=== PATIENT | female | born 1975 | race Caucasian/White ===

== ENCOUNTER 2016-08-06 13:15 | Emergency (ER) | payer OTHER ==
[2016-08-06 13:51] VITALS: BP 118/72
--- NOTE | 2016-08-06 15:12 | UC ---
Respiratory Complaint HPI - HPI Summary HPI Summary: 41 female presents with complaints of a dry cough that began 3 days ago that has seemed to be improving today. States she also had a headache and body soreness from coughing so much. Denies fever, chest pain, SOB, difficulty breathing, vomiting and diarrhea. Admits to have some sore throat yesterday that has since resolved and current nasal congestion/drainage. She has been taking Nyquil and Advil and did have some relief. Did not have the flu shot this year. The symptoms seem to get worse when laying down at night. She denies any production with the cough and no hemoptysis. Denies any significant PMHx. - History of Current Complaint Chief Complaint: UCRespiratory Stated Complaint: COUGH Time Seen by Provider: 08/06/16 14:23 Hx Obtained From: Patient Hx Last Menstrual Period: n/a ?: No Onset/Duration: Sudden Onset Timing: Constant Severity Initially: Moderate Severity Currently: Mild Character: Cough: Nonproductive Aggravating Factors: Deep Breaths Alleviating Factors: OTC Meds Associated Signs And Symptoms: Positive: Chills, Pleuritic Chest Pain, URI, Nasal Congestion. Negative: Dyspnea, Fever, Wheezing, Hemoptysis, Dizziness, Calf Pain - Allergies/Home Medications Allergies/Adverse Reactions: Allergies Allergy/AdvReac Type Severity Reaction Status Date / Time environmental Allergy Itching Uncoded 08/06/16 13:51 Home Medications: Home Medications Amphetamine-Dextroamphetamine [Adderall 10 mg-] 1 tab PO DAILY 08/06/16 [ History Confirmed 08/06/16] Iud 1 unit IU DAILY 08/06/16 [History Confirmed 08/06/16] Prescribed Allergy Med 1 tab PO DAILY 08/06/16 [History Confirmed 08/06/16] PMH/Surg Hx/FS Hx/Imm Hx Endocrine History Of: Denies: Diabetes, Thyroid Disease Cardiovascular History Of: Denies: Cardiac Disorders, Hypertension Respiratory History Of: Reports: Asthma Denies: COPD GI/ History Of: Denies: Ulcer - Surgical History Surgical History: None - Family History Known Family History: Positive: None - Social History Alcohol Use: Weekly Alcohol Amount: weekends Substance Use Type: None Smoking Status (MU): Former Smoker Review of Systems Constitutional: Chills Skin: Negative Eyes: Negative ENT: Sore Throat, Nasal Discharge Respiratory: Cough Cardiovascular: Negative Gastrointestinal: Other - intermittent nausea Motor: Negative Neurovascular: Negative Musculoskeletal: Myalgia - from coughing Neurological: Headache Psychological: Negative All Other Systems Reviewed And Are Negative: Yes Physical Exam Triage Information Reviewed: Yes Appearance: Well-Appearing, No Pain Distress, Well-Nourished Vital Signs: Initial Vital Signs Temp 97.8 F 08/06/16 13:44 Pulse 99 08/06/16 13:44 Resp 18 08/06/16 13:44 BP 118/72 08/06/16 13:44 Pulse Ox 98 08/06/16 13:44 Vital Signs Reviewed: Yes Eye Exam: Normal Eyes: Positive: Conjunctiva Clear ENT: Positive: Normal ENT inspection, Hearing grossly normal, Pharyngeal erythema, Nasal congestion, Nasal drainage, TMs normal. Negative: Tonsillar swelling, Tonsillar exudate Dental: Negative: Percussion Tenderness @, Cervical Lymphadenopathy Neck: Positive: Supple, Nontender Respiratory: Positive: Chest non-tender, Lungs clear, Normal breath sounds, No respiratory distress, No accessory muscle use Cardiovascular: Positive: RRR, No Murmur, Pulses Normal, Brisk Capillary Refill Abdomen Description: Positive: Nontender, No Organomegaly, Soft Bowel Sounds: Positive: Present Musculoskeletal Exam: Normal Musculoskeletal: Positive: Strength Intact, ROM Intact, No Edema Neurological Exam: Normal Neurological: Positive: Alert Psychological Exam: Normal Skin Exam: Normal UC Diagnostic Evaluation - Laboratory O2 Sat by Pulse Oximetry: 98 Respiratory Course/Dx - Course Course Of Treatment: due to patient symptoms and history an x-ray would not be appropriate at this time. Normal vital signs. Appears to be suffering from URI. Will be treated symptomatically. patient is in agreement. is aware of worsening signs and symptoms to watch out for. last dose of advil was YOGA COORDINATOR and therefore not needed at this time. mucinex, flonase/saline nasal spray, tylenol/advil, zicam. given tessalon pearls to take at night to help with cough and to get rest. drink plenty of fluids and follow up. - Differential Dx/Diagnosis Differential Diagnosis/HQI/PQRI: Bronchitis, Sinusitis, Other Provider Diagnoses: URI Discharge - Discharge Plan Condition: Stable Disposition: HOME Prescriptions: Benzonatate CAP* [Tessalon 100 MG CAP*] 100 mg PO TID #20 cap Patient Education Materials: Upper Respiratory Infection (ED), Acute Bronchitis (ED) Referrals: MAHSA Bryant [Primary Care Provider] - Additional Instructions: Recommend taking OTC Mucinex and Zicam to help with your symptoms and to decrease congestion. Use your prescribed flonase and recommend also using saline nasal rinses to help with congestion and opening nasal passages. Tylenol/Advil for pain. Rest and drink plenty of fluids. Wash your hands frequently. If symptoms persist or worsen after the next 10-14 days, please seek medical attention.
== END 2016-08-06 15:21 | disposition home or self-care (01) ==
LOC: UCCORT 13:15
DX: J06.9 Acute upper respiratory infection, unspecified (principal)
CPT/HCPCS: 99212; G0463

== ENCOUNTER 2016-12-27 09:22 | Emergency (ER) | payer OTHER ==
--- NOTE | 2016-12-27 10:59 | RAD ---
HISTORY: Lateral malleolus tenderness COMPARISONS: None VIEWS: 3, Frontal, lateral, and oblique views of the right ankle FINDINGS: BONE DENSITY: Normal. BONES: There is no displaced fracture. JOINTS: There is no arthropathy. ALIGNMENT: There is no dislocation. SOFT TISSUES: Unremarkable. OTHER FINDINGS: None. IMPRESSION: NO ACUTE OSSEOUS INJURY. IF SYMPTOMS PERSIST, RECOMMEND REPEAT IMAGING.
[2016-12-27 11:43] VITALS: BP 113/72
--- NOTE | 2016-12-27 14:43 | UC ---
Lower Extremity/Ankle HPI - HPI Summary HPI Summary: slide into [employer] playing softball 2 days ago. swelling and pain since. rest yesterday and sx improved. pt has sprain this same ankle more than once in the past. wants to know that it is not fx. - History of Current Complaint Chief Complaint: UCLowerExtremity Stated Complaint: RIGHT ANKLE PAIN Time Seen by Provider: 12/27/16 09:57 Hx Obtained From: Patient Hx Last Menstrual Period: IUD ?: No Onset/Duration: Sudden Onset, Lasting Days, Still Present, Worse Since Severity Initially: Moderate Severity Currently: Moderate Pain Intensity: 2 Pain Scale Used: 0-10 Numeric Aggravating Factor(s): Standing, Ambulation Alleviating Factor(s): Rest Able to Bear Weight: Yes - Allergies/Home Medications Allergies/Adverse Reactions: Allergies Allergy/AdvReac Type Severity Reaction Status Date / Time environmental Allergy Itching Uncoded 12/27/16 09:30 PMH/Surg Hx/FS Hx/Imm Hx Previously Healthy: Yes Respiratory History: Asthma - Surgical History Surgical History: None - Family History Known Family History: Negative: Cardiac Disease, Hypertension, Diabetes - Social History Occupation: Employed Full-time Alcohol Use: Weekly Alcohol Amount: weekends Substance Use Type: None Smoking Status (MU): Former Smoker Review of Systems Constitutional: Negative Skin: Negative Eyes: Negative Respiratory: Negative Cardiovascular: Negative Gastrointestinal: Negative Neurovascular: Negative Musculoskeletal: Arthralgia, Edema - OVER LAT MALEOLUS Neurological: Negative Psychological: Negative All Other Systems Reviewed And Are Negative: Yes Physical Exam Triage Information Reviewed: Yes Appearance: Well-Appearing, No Pain Distress, Well-Nourished Vital Signs: Initial Vital Signs Temp 98.0 F 12/27/16 09:24 Pulse 80 12/27/16 09:24 Resp 18 12/27/16 09:24 BP 122/66 12/27/16 09:24 Pulse Ox 100 12/27/16 09:24 Vital Signs Reviewed: Yes Eyes: Positive: Conjunctiva Clear. Negative: Discharge ENT: Positive: Hearing grossly normal. Negative: Muffled/hoarse voice Neck: Positive: Supple Respiratory: Positive: Lungs clear, Normal breath sounds, No respiratory distress, No accessory muscle use Cardiovascular: Positive: RRR, No Murmur Musculoskeletal: Positive: Strength Intact, ROM Intact, Edema @ - OVER LAT MALEOLUS., Other: - TENDER LAT MALEOLUS Neurological: Positive: Alert, Muscle Tone Normal Psychological: Positive: Age Appropriate Behavior Skin Exam: Normal Diagnostics - Radiology No standard instances Xray Interpretation: No Acute Changes Radiology Interpretation Completed By: ED Physician, Radiologist Lower Extremity Course/Dx - Differential Dx/Diagnosis Differential Diagnosis/HQI/PQRI: Contusion, Fracture (Closed), Sprain Provider Diagnoses: ANKLE SPRAIN Discharge - Discharge Plan Condition: Stable Disposition: HOME Patient Education Materials: Ankle Sprain (ED), Ankle Stirrup Splint (ED) Referrals: MAHSA Bryant [Primary Care Provider] - 2 Days (Follow up in 5-7 days. If not improving you will need to be re-evaluated for hidden fracture. You may also want to request physical therapy for recurrent ankle sprains.) Additional Instructions: Follow up in 5-7 days. If not improving you will need to be re-evaluated for hidden fracture. You may also want to request physical therapy for recurrent ankle sprains. YOU WOULD LIKELY BENEFIT FROM OSTEOPATHIC TREATMENT. WE RECOMMEND THAT YOU FIND AN OSTEOPATHIC PHYSICIAN IN YOUR AREA WHO FOCUSES EXCLUSIVELY ON OSTEOPATHIC MANIPULATIVE MEDICINE WITH EXPERTISE IN MYOFACIAL, LYMPHATIC, VISCERAL AND INTEROSSEOUS WORK. OTHER FORMS OF BODY WORK THAT MAY BE HELPFUL INCLUDE ACUPUNCTURE AND ASPHALT MIXING MACHINE OPERATOR.
== END 2016-12-27 11:43 | disposition home or self-care (01) ==
LOC: UCCORT 09:22
DX: S93.401A Sprain of unspecified ligament of right ankle, initial encounter (principal); X58.XXXA Exposure to other specified factors, initial encounter; Y93.64 Activity, baseball; Y92.320 Baseball field as the place of occurrence of the external cause; J45.909 Unspecified asthma, uncomplicated; Z87.891 Personal history of nicotine dependence
CPT/HCPCS: 99212; G0463